=== PATIENT | male | born 1990 | race Hispanic/Latino ===

== ENCOUNTER 2017-02-06 22:33 | Emergency (ER) | payer SELFPAY ==
[2017-02-06 22:40] VITALS: TEMP 96.9
[2017-02-06] MEDS ORDERED: Sodium Chloride 0.9% 1,000 ML IV STA (23:06)
--- NOTE | 2017-02-06 23:30 | ED PDOC ---
HPI: Psych/Substance Abuse Time Seen by Provider: 02/06/17 22:55 Chief Complaint (Nursing): Alcohol Ingestion Chief Complaint (Provider): EtOH use ED Caveat: Intoxicated History Per: Patient History/Exam Limitations: intoxication Onset/Duration Of Symptoms: Hrs Current Symptoms Are (Timing): Still Present Modifying Factor(s): Alcohol Additional Complaint(s): 26yo male, brought in by EMS for evaluation of alcohol intoxication. Patient was at a bar and was asked to leave by a bouncer; the police were called to help remove the patient from the premises. EMS was called because the patient was heavily intoxicated and had a history of cardiac arrhythmia. Patient admits to heavy drinking today and states he had a cardiac arrhythmia and underwent a procedure to eliminate it (? ablation). Patient states he takes no medications and has not had any issues with the arrhythmia. Patient states he lives in [place], [place] and planned to take the train home tonight. Of note, patient is an unreliable historian as he is intoxicated. Past Medical History Reviewed: Historical Data, Nursing Documentation, Vital Signs Vital Signs: Last Vital Signs Temp 96.9 F L 02/06/17 22:37 Pulse 127 H 02/06/17 23:02 Resp 18 02/06/17 23:02 BP 132/82 02/06/17 23:02 Pulse Ox 99 02/06/17 23:02 - Medical History PMH: Cardia Arrhythmia - Surgical History Surgical History: No Surg Hx - Family History Family History: States: No Known Family Hx - Social History Current smoker - smoking cessation education provided: No Ex-Smoker (has not smoked in the last 12 months): No Drugs: Denies - Allergies Allergies/Adverse Reactions: Allergies Allergy/AdvReac Type Severity Reaction Status Date / Time No Known Allergies Allergy Verified 02/06/17 22:38 Review of Systems ROS Statement: Except As Marked, All Systems Reviewed And Found Negative (as per HPI, questionable due to patient's intoxicated state.) Cardiovascular: Negative for: Chest Pain Respiratory: Negative for: Shortness of Breath Physical Exam - Reviewed Nursing Documentation Reviewed: Yes Vital Signs Reviewed: Yes - Physical Exam Appears: Positive for: In Acute Distress (tearful and upset) Head Exam: Positive for: ATRAUMATIC, NORMOCEPHALIC Skin: Positive for: Warm, Dry Eye Exam: Positive for: EOMI, PERRL, Conjunctival injection ENT: Positive for: Pharynx Is (clear), Tonsillar Swelling (tacky mucus membranes ) Cardiovascular/Chest: Positive for: Tachycardia (regular rhythm). Negative for : Murmur Respiratory: Positive for: Normal Breath Sounds. Negative for: Respiratory Distress Gastrointestinal/Abdominal: Positive for: Soft. Negative for: Tenderness Back: Positive for: Normal Inspection. Negative for: Decreased ROM Extremity: Positive for: Normal ROM. Negative for: Deformity Lymphatic: Negative for: Adenopathy Neurologic/Psych: Positive for: Alert, Mood/Affect (at times anxious and tearful , other times angry), Gait (unsteady), Other (slurred speech). Negative for: Motor/Sensory Deficits - ECG O2 Sat by Pulse Oximetry: 99 (RA) Pulse Ox Interpretation: Normal Medical Decision Making Medical Decision Making: Impression: Alcohol intoxication, dehydration Plan: Pt with somewhat labile mood and judgment questionable considering distance he wants to travel using public transportation that is not available at this time ( train to [place], [place] at 11pm). For safety pt to be kept in ER until discharge considered safe (sobriety, daytime hours, ride home with trusted sober family or friend) -- IV Fluids -- Alcohol serum -- Observe -- Reassess 12:30 [id number] in ER to drive patient home. Patient eager to go with her. Advised of dangers of alcohol and pt discharged stable. Scribe Attestation: Documented by Shirlene Menjivar acting as a scribe for Alexa Arredondo MD. Provider Attestation: All medical record entries made by the Scribe were at my direction and personally dictated by me. I have reviewed the chart and agree that the record accurately reflects my personal performance of the history, physical exam, medical decision making, and the department course for this patient. I have also personally directed, reviewed, and agree with the discharge instructions and disposition. Disposition - Clinical Impression Clinical Impression: Alcohol intoxication Counseled Patient/Family Regarding: Studies Performed, Diagnosis - Disposition Disposition: Routine/Home Disposition Time: 00:30 Condition: IMPROVED Additional Instructions: DRINK IN MODERATION OR DON'T DRINK AT ALL RETURN TO ER FOR WORSENING SYMPTOMS REST AND DRINK PLENTY OF HYDRATING FLUIDS. Instructions: Alcohol Intoxication (ED) Forms: [facility] (F[place]ian)
[2017-02-06 23:32] VITALS: O2SAT 99
[2017-02-07 00:32] VITALS: BP 108/77; PULSE 111; RESP 18
== END 2017-02-07 00:32 | disposition home or self-care (01) ==
LOC: H.ER 22:33
DX: F10.129 Alcohol abuse with intoxication, unspecified (principal); E86.0 Dehydration; Z87.891 Personal history of nicotine dependence
CPT/HCPCS: 96360; 99284; G0480; J7040